=== PATIENT | male | born 1995 | race Hispanic/Latino ===

== ENCOUNTER 2017-04-07 10:15 | Emergency (ER) | payer MEDICAID ==
[2017-04-07] MEDS ORDERED: KETOROLAC TROMETHAMINE 60 MG/2 ML VIAL ONE (10:34)
== END 2017-04-07 11:03 | disposition home or self-care (01) ==
LOC: EDH 10:15
DX: S93.401A Sprain of unspecified ligament of right ankle, initial encounter (principal); Z72.0 Tobacco use; X58.XXXA Exposure to other specified factors, initial encounter; Y93.89 Activity, other specified; Y92.89 Other specified places as the place of occurrence of the external cause; Y99.8 Other external cause status
CPT/HCPCS: 73610; 96372; 99284; J1885

== ENCOUNTER 2017-07-25 13:43 | Emergency (ER) | payer MEDICAID ==
[2017-07-25] MEDS ORDERED: TETANUS/DIPHTHERIA TOXOID [ADULT] 0.5 ML VIAL IM ONE (13:51)
== END 2017-07-25 14:20 | disposition home or self-care (01) ==
LOC: EDH 13:43
DX: S51.832A Puncture wound without foreign body of left forearm, initial encounter (principal); J45.909 Unspecified asthma, uncomplicated; Z72.0 Tobacco use; W18.39XA Other fall on same level, initial encounter; Y93.89 Activity, other specified; Y92.098 Other place in other non-institutional residence as the place of occurrence of the external cause; Y99.8 Other external cause status
CPT/HCPCS: 73090; 90471; 90714

== ENCOUNTER 2018-01-12 03:53 | Emergency (ER) | payer MEDICAID ==
[2018-01-12] MEDS ORDERED: ONDANSETRON HCL 4 MG/2 ML VIAL ONE (04:18)
[2018-01-12] MEDS ORDERED: SODIUM CHLORIDE 0.9% 1000ML 1,000 ML IV ONE (04:18)
[2018-01-12] MEDS ORDERED: DICYCLOMINE HCL 10 MG/ML 2ML AMP IM ONE (04:19)
[2018-01-12 04:23] LABS: BASOPHILS % (AUTO) 0.6 % (0.0-5.0); EOSINOPHILS % (AUTO) 5.2 % (0.0-8.0); HEMATOCRIT 46.1 % (42-54); LYMPHOCYTES % (AUTO) 17.2 % (21.0-51.0); MEAN CORPUSCULAR HEMOGLOBIN 31.1 pg (27.0-33.0); MEAN CORPUSCULAR HGB CONC 35.1 g/dL (32.0-36.0); MEAN CORPUSCULAR VOLUME 88.5 fL (79-99); MONOCYTES % (AUTO) 2.8 % (3.0-13.0); NEUTROPHILS % (AUTO) 74.2 % (40.0-77.0); PLATELET COUNT (AUTO) 246 K/uL (130-400); RED BLOOD CELL COUNT(AUTO) 5.21 MIL/uL (4.50-6.20); RED CELL DISTRIBUTION WIDTH 12.7 % (11.0-15.5); WHITE BLOOD COUNT (AUTO) 10.6 K/uL (4.8-10.8)
[2018-01-12 04:30] LABS: CREATININE 1.1 mg/dL (0.5-1.5); POTASSIUM 3.6 mmol/L (3.5-5.1)
[2018-01-12 04:34] LABS: APPEARANCE,URINE Clear (CLEAR); BILIRUBIN,URINE Negative (NEGATIVE); COLOR,URINE Yellow (YELLOW); GLUCOSE, URINE (UA) >=1000 mg/dL (NEGATIVE); KETONES,URINE Trace mg/dL (NEGATIVE); LEUKOCYTE ESTERASE ,URINE Negative (NEGATIVE); NITRATE,URINE Negative (NEGATIVE); OCCULT BLOOD,URINE Negative (NEGATIVE); PROTEIN,URINE Negative (NEGATIVE)
[2018-01-12 04:35] LABS: ALBUMIN 3.5 g/dL (3.5-5.0); BILIRUBIN,TOTAL 0.8 mg/dL (0.2-1.0); TOTAL PROTEIN, SERUM 7.1 g/dL (6.0-8.3)
[2018-01-12 04:41] LABS: BACTERIA,URINE Rare /HPF (None Seen); MUCUS,URINE Few LPF (None Seen); RBC,URINE 0-1 /HPF (0-1)
[2018-01-12] MEDS ORDERED: FAMOTIDINE/PF 20 MG/2 ML VIAL IV ONE (05:40)
== END 2018-01-12 05:53 | disposition home or self-care (01) ==
LOC: EDH 03:53
DX: A09 Infectious gastroenteritis and colitis, unspecified (principal); E86.0 Dehydration; E11.65 Type 2 diabetes mellitus with hyperglycemia; B37.2 Candidiasis of skin and nail; M25.512 Pain in left shoulder; J45.909 Unspecified asthma, uncomplicated
CPT/HCPCS: 36415; 80053; 81001; 85025; 96361; 96372; 96374 ×2; 99284; J0500; J2405; J3490; J7030; 96375

== ENCOUNTER 2018-05-21 08:01 | Emergency (ER) | payer MEDICAID ==
[2018-05-21 10:09] LABS: RAPID GROUP A STREP NEGATIVE (NEGATIVE)
== END 2018-05-21 10:21 | disposition home or self-care (01) ==
LOC: EDH 08:01
DX: J20.9 Acute bronchitis, unspecified (principal); H92.09 Otalgia, unspecified ear; E11.9 Type 2 diabetes mellitus without complications; J45.909 Unspecified asthma, uncomplicated; Z72.0 Tobacco use; Z98.890 Other specified postprocedural states
CPT/HCPCS: 87804; 87880